=== PATIENT | female | born 1930 | race Caucasian/White ===

== ENCOUNTER 2016-11-29 17:05 | Inpatient (IN) | payer MEDICARE, OTHER ==
[~2016-11-29] VITALS: Ht 162.6 cm; Wt 66.6 kg
[~2016-11-29 17:05] MED LIST: ACCUPRIL10 MG PO; HYDROCODONE-APA1 TAB PO; IPRAT-ALBUT 0.5-3 ML UPD; PLAQUENIL200 MG PO; PROAIR HFA8.5 GM INH; SALAGEN5 MG PO; SYMBICORT 16010.2 GM INH; THEOPHYLLINE PO
--- NOTE | 2016-11-29 17:25 | NUR ---
TRANSFER FROM ADMISSIONS BY W/C. OREINTED TO ROOM. CALL LGHT IN REACH. WILL CONT. PLAN OF CARE.
[2016-11-29 18:16] VITALS: BP 198/77; BMI 25.6
[2016-11-29 18:38] LABS: BASOPHILS 0.5 % (0.0-2.0); EOSINOPHILS 6.8 % (0-7); HEMATOCRIT 40.4 % (36.0-48.0); HEMOGLOBIN 13.4 g/dL (12-16); IMMATURE GRANULOCYTES 0.2 % (0-5); LYMPHOCYTES 31.2 % (15-50); MCH 30.9 pg (26.0-34.0); MCHC 33.2 g/dL (31.0-37.0); MCV 93.1 fL (80.0-100.0); MEAN PLATELET VOLUME 10.7 fL (7.4-10.4); MONOCYTES 6.2 % (2-11); NEUTROPHILS 55.1 % (40-80); PLATELET COUNT 243 10x3/uL (130-400); RBC 4.34 10x6/uL (4.00-5.40); WBC 4.4 10x3/uL (4.8-10.8)
[2016-11-29 18:49] LABS: ANION GAP 15.6 mmol/L (8-16); CALCIUM 9.8 mg/dL (8.5-10.1); CARBON DIOXIDE 26.8 mmol/L (21.0-32.0); CREATININE - SERUM 1.1 mg/dL (0.6-1.3); POTASSIUM - SERUM 3.4 mmol/L (3.5-5.1)
[2016-11-29 20:00] VITALS: BP 155/73
--- NOTE | 2016-11-29 20:00 | NUR ---
22 GUAGE PIV INSERTED INTO R.FA X1 ATTEMPT. PROVIDED PT WITH ORDERED MEDS AND CONNECTED HER TO HER IVPB ANBX. PT SITTING UP IN BED RESTING WITH FAMILY AT BEDSIDE. DENIES ANY CURRENT PAIN OR FURTHER NEEDS. CL IN REACH, BED IN LOWEST, SIDE RAILS X2. WILL CPOC.
[2016-11-29] MEDS ORDERED: NOLVADEX10 M1 PO (21:46)
--- NOTE | 2016-11-29 23:39 | NUR ---
RESUMED CARE OF PT, BED IS LOW, SRX2, CALL LIGHT IN REACH, WILL CONTINUE TO MONITOR
[2016-11-30 02:00] VITALS: BP 146/70
[2016-11-30 04:30] VITALS: BP 142/70
[2016-11-30 05:33] LABS: BASOPHILS 0.4 % (0.0-2.0); EOSINOPHILS 0.4 % (0-7); HEMATOCRIT 36.9 % (36.0-48.0); HEMOGLOBIN 12.1 g/dL (12-16); MCH 30.5 pg (26.0-34.0); MCHC 32.8 g/dL (31.0-37.0); MCV 92.9 fL (80.0-100.0); MEAN PLATELET VOLUME 10.6 fL (7.4-10.4); MONOCYTES 1.2 % (2-11); PLATELET COUNT 218 10x3/uL (130-400); RBC 3.97 10x6/uL (4.00-5.40); RDW 12.9 % (11.5-14.5)
[2016-11-30 05:35] LABS: WBC 2.6 10x3/uL (4.8-10.8)
[2016-11-30 05:59] LABS: ANION GAP 15.4 mmol/L (8-16); CALCIUM 8.5 mg/dL (8.5-10.1); CREATININE - SERUM 1.1 mg/dL (0.6-1.3)
[2016-11-30 06:00] LABS: POTASSIUM - SERUM 4.4 mmol/L (3.5-5.1)
--- NOTE | 2016-11-30 07:49 | NUR ---
RECEIVED REPORT FROM NIGHT NURSE. PT RECEIVING RESP TREATMENT. NO DISTRESS. WILL CONTINUE TO MONITOR.
[2016-11-30 07:51] VITALS: BP 156/77
--- NOTE | 2016-11-30 11:00 | NUR ---
ASSUMED CARE FOR THIS PT FOR THE REMAINDER OF [employer] DAY[employer]. INTRODUCED MYSELF TO PT PRIMARY RN FOR TODAY. NO CURRENT NEEDS AT THIS TIME. WILL CHECK CHART ORDERS AND CPOC.
[2016-11-30 12:00] VITALS: BP 158/71
[2016-11-30 12:06] VITALS: Ht 162.6 cm; Wt 66.6 kg
[2016-11-30 16:00] VITALS: BP 129/55
--- NOTE | 2016-11-30 19:15 | NUR ---
RECEIVED REPORT, PT DENIES ANY NEEDS, TALKED TO HER ABOUT HAVE FINGERSTICKS, SHE AGREE TO HAVE THIS DONE, IV-RFA-SL, BED IS LOW, SRX2, WILL CONTINUE TO MONITOR
[2016-11-30 20:23] VITALS: BP 139/60
--- NOTE | 2016-11-30 21:56 | NUR ---
PT RESTING SOUNDLY WITHOUT C/O OR DISTRESS NOTED. CALL LIGHT WITHIN REACH. NO NEEDS VOICED. WILL CONT TO MONITOR.
[2016-12-01 00:07] VITALS: BP 125/60
[2016-12-01 04:26] VITALS: BP 151/68
[2016-12-01 06:52] LABS: BASOPHILS 0 % (0-2); EOSINOPHILS 0 % (0-7); HEMATOCRIT 38.8 % (36.0-48.0); HEMOGLOBIN 12.6 g/dL (12-16); IMMATURE GRANULOCYTES 0.3 % (0-5); LYMPHOCYTES 15.6 % (15-50); MCH 30.2 pg (26.0-34.0); MCHC 32.5 g/dL (31.0-37.0); MEAN PLATELET VOLUME 11.2 fL (7.4-10.4); MONOCYTES 4.8 % (2-11); NEUTROPHILS 79.3 % (40-80); PLATELET COUNT 240 10x3/uL (130-400); RBC 4.17 10x6/uL (4.00-5.40); RDW 12.9 % (11.5-14.5)
[2016-12-01 07:03] LABS: ANION GAP 14.3 mmol/L (8-16); CALCIUM 8.6 mg/dL (8.5-10.1); CARBON DIOXIDE 25.3 mmol/L (21.0-32.0)
[2016-12-01 07:05] LABS: POTASSIUM - SERUM 3.6 mmol/L (3.5-5.1)
--- NOTE | 2016-12-01 07:43 | NUR ---
ASSESSMENT COMPLETED.02 AT 2 L/M PER NC. NOT ON TELEMERTY. UP AB AIDE. DENIES ANY NEEDS. CALL LIGHT IN REACH WITH SR UP. WILL MONITOR
--- NOTE | 2016-12-01 08:00 | NUR ---
RESTING QUIETLY WORKING CROSS WORD PUZZLE RESP UNLABORED DENIES ANY NEEDS OR DISCOMFORT
[2016-12-01 08:12] VITALS: BP 155/68
[2016-12-01 12:46] VITALS: BP 152/75
--- NOTE | 2016-12-01 12:52 | NUR ---
UP ON SIDE OF BED. DENIES ANY NEEDS. CALL LIGHT IN REACH WITH SR UP. WILL MONITOR
[2016-12-01 15:46] VITALS: BP 155/81
--- NOTE | 2016-12-01 18:05 | NUR ---
UP IN BEDSIDE CHAIR. DENIES ANY NEEDS. CALL LIGHT IN REACH WITH SR UP. WILL MONITOR
--- NOTE | 2016-12-01 19:30 | NUR ---
RECEIVED REPORT, PT VISITING WITH FAMILY, DENIES ANY NEEDS, BED IS LOW, SRX2, CALL LIGHT IN REACH, IV-RFA-SL
[2016-12-01 20:07] VITALS: BP 162/81
--- NOTE | 2016-12-01 20:15 | NUR ---
PT IV INFILTRATED, LILIA RESTARTED TO L, WRIST
[2016-12-02] VITALS (7 sets, daily range): BP systolic 149–177; BP diastolic 69–89
[2016-12-02 06:15] LABS: BASOPHILS 0 % (0-2); EOSINOPHILS 0 % (0-7); HEMATOCRIT 36.8 % (36.0-48.0); HEMOGLOBIN 12.2 g/dL (12-16); IMMATURE GRANULOCYTES 0.5 % (0-5); LYMPHOCYTES 12.1 % (15-50); MCH 30.8 pg (26.0-34.0); MCHC 33.2 g/dL (31.0-37.0); MCV 92.9 fL (80.0-100.0); MEAN PLATELET VOLUME 11.2 fL (7.4-10.4); MONOCYTES 3.7 % (2-11); NEUTROPHILS 83.7 % (40-80); PLATELET COUNT 241 10x3/uL (130-400); RBC 3.96 10x6/uL (4.00-5.40); WBC 6.5 10x3/uL (4.8-10.8)
[2016-12-02 06:32] LABS: ANION GAP 14.4 mmol/L (8-16); CALCIUM 8.2 mg/dL (8.5-10.1); CARBON DIOXIDE 24.5 mmol/L (21.0-32.0); CREATININE - SERUM 0.9 mg/dL (0.6-1.3); POTASSIUM - SERUM 3.9 mmol/L (3.5-5.1)
--- NOTE | 2016-12-02 07:35 | NUR ---
ASSESSMENT COMPLETED. DENIES ANY NEEDS. LEFT WRIST SL. O2 AT 2 L/M PRN. WILL MONITOR
--- NOTE | 2016-12-02 09:43 | NUR ---
RESTING QUIETLY RESP UNLABORED DENIES ANY NEEDS OR DISCOMFORT NAD NOTED
--- NOTE | 2016-12-02 15:48 | NUR ---
UP IN CHAIR. DENIES ANY NEEDS. CALL LIGHT IN REACH. WILL MONITOR
--- NOTE | 2016-12-02 18:41 | NUR ---
LYING QUIETLY. DENIES ANY NEEDS. CALL LIGHT IN REACH WITH SR UP
--- NOTE | 2016-12-02 19:28 | NUR ---
RESUMED CARE OF PT, LYING IN BED RESPIRATIONS EVEN AND UNLABORED ON 2LPM VIA NC. FAMILY AT BEDSIDE. LEFT WRIST SALINE LOCKED. NO NEEDS VOICED AT THIS TIME. WILL CONTINUE TO MONITOR. CALL LIGHT IN REACH. SEE NURSE ASSESSMENT.
[2016-12-03 05:32] VITALS: BP 152/81
[2016-12-03 06:04] LABS: BASOPHILS 0.1 % (0-2); EOSINOPHILS 0.4 % (0-7); HEMATOCRIT 36.5 % (36.0-48.0); IMMATURE GRANULOCYTES 0.5 % (0-5); LYMPHOCYTES 17.7 % (15-50); MCH 30.5 pg (26.0-34.0); MCHC 32.9 g/dL (31.0-37.0); MCV 92.6 fL (80.0-100.0); MONOCYTES 12.1 % (2-11); NEUTROPHILS 69.2 % (40-80); PLATELET COUNT 256 10x3/uL (130-400); RBC 3.94 10x6/uL (4.00-5.40); RDW 12.8 % (11.5-14.5); WBC 7.5 10x3/uL (4.8-10.8)
[2016-12-03 06:19] LABS: ANION GAP 11.4 mmol/L (8-16); CALCIUM 8.3 mg/dL (8.5-10.1); CARBON DIOXIDE 28.8 mmol/L (21.0-32.0); CREATININE - SERUM 0.8 mg/dL (0.6-1.3)
[2016-12-03 06:25] LABS: POTASSIUM - SERUM 3.2 mmol/L (3.5-5.1)
--- NOTE | 2016-12-03 06:25 | NUR ---
NO CHANGES FROM PREVIOUS ASSESSMENT, CALL LIGHT IN REACH.
[2016-12-03 07:44] VITALS: BP 160/77
--- NOTE | 2016-12-03 08:01 | NUR ---
SLEEPING BUT AROUSABLE. SLEEPING. FAMILY AT BEDSIDE.
--- NOTE | 2016-12-03 08:03 | NUR ---
AWAKE WITHOUT ANY DISTRESS.
[2016-12-03 12:19] VITALS: BP 169/76
[2016-12-03] MEDS ORDERED: PREDNISONE20 MG PO (12:43)
--- NOTE | 2016-12-03 14:31 | NUR ---
DISCHARGE INSTRUCTIONS GIVEN. IV REMOVED WITH TIP INTACT. TO CAR VIA .
--- NOTE | 2016-12-03 15:54 | NUR ---
Patient Name: JARON MCCOY Admission Status: Urgent Accout number: [id number] Admission Date: 11-29-2016 : 1930 Admission Diagnosis:SHORTNESS OF BREATH Attending: TERRI Current LOS: 4 Anticipated DC Date: 12-03-2016 Planned Disposition: Home Primary Insurance: MEDICARE A & B LATE ENTRY: Discharge Planning Comments: * Is the patient Alert and Oriented? Yes 0 * How many steps to enter\exit or inside your home? NONE 0 * PCP DR. RAMACHANDRAN 0 * Pharmacy [facility] 0 * Preadmission Environment Home with Family 0 * ADLs Independent 0 * Equipment Cane Nebulizer Oxygen Walker 0 * Other Equipment [employer]ERGHOL[employer] PATIENT - MEDICAL EQUIPMENT PROVIDER 0 * List name and contact numbers for known caregivers / representatives who currently or will assist patient after discharge: TANMAY MCCOY, SPOUSE, 0 * Community resources currently utilized None 0 * Please name any agencies selected above. NONE 0 * Additional services required to return to the preadmission environment? No 0 * Can the patient safely return to the preadmission environment? Yes 0 * Has this patient been hospitalized within the prior 30 days at any hospital? No 0 CM MET WITH PT IN ROOM TO DISCUSS DISCHARGE PLANNING AND NEEDS. PT REPORTS LIVING AT HOME INDEPENDENTLY WITH HER SPOUSE. PT HAS HOME AND PORTABLE OXGYEN, NEBULIZER, WALKER AND CANE PROVIDED BY [employer]ITHUANIAN BERGHOLZ PATIENT. PT HAS NO OUTSIDE SERVICES ASSISTING IN THE HOME. CM DISCUSSED AVAILABILITY OF HOME HEALTH, REHAB SERVICES AND MEDICAL EQUIPMENT. PT DENIES DISCHARGE NEEDS, REPORTS HER SPOUSE IS HERE TO PICK HER UP FOR DISCHARGE HOME TODAY. IMPORTANT MESSAGE FROM MEDICARE PROVIDED AND EXPLAINED. Compounding Pharmacy Technician: Irvin Mccormack
== END 2016-12-03 14:40 | disposition home or self-care (01) | DRG 190 ==
LOC: D.M2 17:05
PROVIDERS: ADMIT Family Medicine
DX: J44.0 Chronic obstructive pulmonary disease with (acute) lower respiratory infection (principal); J18.1 Lobar pneumonia, unspecified organism; J44.1 Chronic obstructive pulmonary disease with (acute) exacerbation; I10 Essential (primary) hypertension; Z86.73 Personal history of transient ischemic attack (TIA), and cerebral infarction without residual deficits; M35.00 Sjogren syndrome, unspecified

== ENCOUNTER 2017-10-31 14:19 | Inpatient (IN) | payer MEDICARE, OTHER ==
[~2017-10-31] VITALS: Ht 162.6 cm; Wt 70.5 kg
--- NOTE | ~2017-10-31 | CN ---
PATIENT NAME:JARON MCCOY MEDICAL RECORD: [id number] : 30 LOCATION:[facility] ADMIT DATE: 10/31/17 ACCOUNT: [id number] CONSULTING PHYSICIAN: PEPITO ATKINSON MD REFERRING PHYSICIAN: LIN RAMACHANDRAN MD DATE OF CONSULTATION: 11/01/2017 CONSULT REQUESTING PHYSICIAN: Dr. Ramachandran. REASON FOR CONSULTATION: Pneumonia right upper lobe, flu. HISTORY OF PRESENT ILLNESS: Ms. Mccoy is an 87-year-old female who is sick for the last 5 days. She has flu-like symptom. She was given Tamiflu for 5 days, but she was not getting any better. She was seen in Dr. Ramachandran's office yesterday and admitted for aggressive management. Her influenza A and B were negative. REVIEW OF SYSTEMS: As in history of present illness. PAST MEDICAL HISTORY: 1. COPD. 2. Asthma. 3. Obstructive sleep apnea. 4. Chronic hypoxic respiratory failure. 5. Basal cell carcinoma of the right breast. 6. History of multiple TIAs. 7. Sjogren syndrome. PAST SURGICAL HISTORY: 1. Hysterectomy. 2. Tonsillectomy. 3. Hemorrhoidectomy. 4. Right hip replacement. 5. Left arm surgery. ALLERGIES: She is allergic to PENICILLIN and SULFA. MEDICATIONS: Her MOWGLItech is reviewed. PERSONAL SOCIAL HISTORY: The patient is an ex-smoker. She is nondrinker. FAMILY HISTORY: Noncontributory. PHYSICAL EXAMINATION: GENERAL: The patient is lying comfortably in bed. She is not in acute distress. VITAL SIGNS: The blood pressure is 122/43; pulse is 89; respiration is 18; temperature is 98.4, on admission her temperature was 102.7; and SpO2 97% on 2 liters nasal cannula. HEENT: Conjunctivae pink. Sclerae nonicteric. NECK: Neck is supple. No JVD. CHEST: The chest excursion is minimal on both sides. Wheeze on forceful expiration. HEART: Rhythm regular, normal sound, no murmur. ABDOMEN: Abdomen is soft. Bowel sounds present. No hepatosplenomegaly. CONSULT REPORT [id number] JARON MCCOY RECTAL: Deferred. EXTREMITIES: No cyanosis, no clubbing, and no pedal edema. SKIN: The skin is warm, normal turgor. CENTRAL NERVOUS SYSTEM: The patient is awake and alert. There are no obvious cranial nerve abnormalities. The gait was not tested. CHEST RADIOGRAPH: There is infiltrate in the right upper lobe. LABORATORY DATA: CBC: WBC 8.4, hemoglobin 10.5, hematocrit 31.6, and platelet count 244. Chemistry: Sodium 132, potassium 3.1, BUN is 9, and creatinine is 1. ABG: The pH is 7.46, pCO2 is 27.9, the pO2 is 77, and bicarbonate is 20.1. IMPRESSION: 1. Acute exacerbation of chronic obstructive pulmonary disease. 2. Waxhq-db-onddcmp hypoxic respiratory failure. 3. Pneumonia, right upper lobe consistent with community-acquired pneumonia. 4. Leukocytosis. 5. Obstructive sleep apnea. The patient is on CPAP at home. 6. Ex-smoker. RECOMMENDATION: 1. Discontinue Advair inhaler, start on Brovana and budesonide nebulizer. Continue doxycycline. I will add Rocephin for gram-negative coverage. 2. Albuterol/ipratropium nebulizer. 3. Start methylprednisolone IV. 4. Check alpha-1 level. 5. Follow up labs and chest radiograph. Dr. Ramachandran, thank you for involving me in the care of Ms. Mccoy. TRANSINT:[id number] Voice Confirmation ID: [id number] DOCUMENT ID: [id number] PEPITO ATKINSON MD at 1410 CC: LIN RAMACHANDRAN MD [id number] DICTATION DATE: 11/01/17 1208 BUSINESS SERVICES DIRECTOR: 11/01/17 1231 DIS IN 11/04/17 [place] [address]
[~2017-10-31 14:19] MED LIST changes: +PREDNISONE20 MG PO; +TAMOXIFEN CITRA20 MG PO
[2017-10-31] MEDS ORDERED: FUROSEMIDE20 MG PO (14:45)
[2017-10-31] MEDS ORDERED: BAYER CHEWABLE81 MG PO (14:48)
[2017-10-31] MEDS ORDERED: FLUTICASONE PRO16 GM NASAL (14:49)
[2017-10-31] MEDS ORDERED: SYMBICORT 16010.2 GM INH (14:51)
[2017-10-31] MEDS ORDERED: IPRAT-ALBUT 0.5-3 ML UPD (14:52)
[2017-10-31] MEDS ORDERED: PROAIR HFA8.5 GM INH (14:53)
[2017-10-31] MEDS ORDERED: CALCIUM 600+D T1 TA1 PO (14:54)
[2017-10-31] MEDS ORDERED: SYSTANE 0.3-0.4%5 ML EACH EYE (14:56)
[2017-10-31] MEDS ORDERED: PRESERVISION AR1 CAP PO (14:57)
[2017-10-31 15:01] VITALS: BP 142/49; BMI 24.8
[2017-10-31 17:14] LABS: BASOPHILS 0.1 % (0-2); EOSINOPHILS 0.2 % (0-7); HEMATOCRIT 31.7 % (36.0-48.0); HEMOGLOBIN 10.5 g/dL (12-16); IMMATURE GRANULOCYTES 0.4 % (0-5); MCH 29.7 pg (26.0-34.0); MCHC 33.1 g/dL (31.0-37.0); MCV 89.5 fL (80.0-100.0); MEAN PLATELET VOLUME 10.5 fL (7.4-10.4); MONOCYTES 10.2 % (2-11); NEUTROPHILS 82.1 % (40-80); PLATELET COUNT 232 10x3/uL (130-400); RBC 3.54 10x6/uL (4.00-5.40); RDW 13.7 % (11.5-14.5)
[2017-10-31 17:34] LABS: ALBUMIN 2.6 g/dL (3.4-5.0); ANION GAP 17.6 mmol/L (8-16); BILIRUBIN - TOTAL 0.53 mg/dL (0.2-1.3); CALCIUM 7.6 mg/dL (8.5-10.1); CARBON DIOXIDE 22.1 mmol/L (21.0-32.0); CREATININE - SERUM 1.2 mg/dL (0.6-1.3); POTASSIUM - SERUM 3.7 mmol/L (3.5-5.1); PROTEIN - SERUM 6.3 g/dL (6.4-8.2)
[2017-10-31 20:00] VITALS: BP 115/44
[2017-11-01] VITALS: BP 117/63
[2017-11-01 04:00] VITALS: BP 133/52
[2017-11-01 05:59] LABS: BASOPHILS 0.1 % (0-2); EOSINOPHILS 0.8 % (0-7); HEMATOCRIT 31.6 % (36.0-48.0); HEMOGLOBIN 10.5 g/dL (12-16); IMMATURE GRANULOCYTES 0.2 % (0-5); LYMPHOCYTES 9.1 % (15-50); MCH 29.3 pg (26.0-34.0); MCHC 33.2 g/dL (31.0-37.0); MCV 88.3 fL (80.0-100.0); MEAN PLATELET VOLUME 10.3 fL (7.4-10.4); MONOCYTES 11.3 % (2-11); NEUTROPHILS 78.5 % (40-80); PLATELET COUNT 244 10x3/uL (130-400); RBC 3.58 10x6/uL (4.00-5.40); RDW 13.7 % (11.5-14.5); WBC 8.4 10x3/uL (4.8-10.8)
[2017-11-01 06:28] LABS: ALBUMIN 2.3 g/dL (3.4-5.0); ANION GAP 11.5 mmol/L (8-16); BILIRUBIN - TOTAL 0.5 mg/dL (0.2-1.3); CALCIUM 7.9 mg/dL (8.5-10.1); CARBON DIOXIDE 23.6 mmol/L (21.0-32.0); PROTEIN - SERUM 6.7 g/dL (6.4-8.2)
[2017-11-01 06:30] LABS: POTASSIUM - SERUM 3.1 mmol/L (3.5-5.1)
[2017-11-01 09:19] VITALS: BP 122/43
[2017-11-01 10:29] VITALS: Ht 162.6 cm; Wt 70.5 kg
[2017-11-01 13:05] VITALS: BP 121/40
[2017-11-01 16:04] VITALS: BP 130/70
[2017-11-01 20:00] VITALS: BP 138/68
[2017-11-02 04:00] VITALS: BP 120/62
[2017-11-02 05:48] LABS: BASOPHILS 0 % (0-2); EOSINOPHILS 0 % (0-7); HEMATOCRIT 30.8 % (36.0-48.0); HEMOGLOBIN 10.3 g/dL (12-16); IMMATURE GRANULOCYTES 0.3 % (0-5); LYMPHOCYTES 3.3 % (15-50); MCH 29.2 pg (26.0-34.0); MCHC 33.4 g/dL (31.0-37.0); MCV 87.3 fL (80.0-100.0); MEAN PLATELET VOLUME 10.5 fL (7.4-10.4); NEUTROPHILS 94.4 % (40-80); PLATELET COUNT 281 10x3/uL (130-400); RBC 3.53 10x6/uL (4.00-5.40); RDW 13.7 % (11.5-14.5); WBC 7.6 10x3/uL (4.8-10.8)
[2017-11-02 06:02] LABS: ALBUMIN 2.3 g/dL (3.4-5.0); BILIRUBIN - TOTAL 0.3 mg/dL (0.2-1.3); CALCIUM 7.8 mg/dL (8.5-10.1); CARBON DIOXIDE 21.8 mmol/L (21.0-32.0); CREATININE - SERUM 0.9 mg/dL (0.6-1.3); PROTEIN - SERUM 6.8 g/dL (6.4-8.2)
[2017-11-02 06:06] LABS: POTASSIUM - SERUM 3.8 mmol/L (3.5-5.1)
[2017-11-02 10:15] VITALS: BP 138/61
[2017-11-02 12:35] VITALS: BP 130/57
[2017-11-02 16:19] VITALS: BP 148/75
[2017-11-02 20:00] VITALS: BP 141/58
[2017-11-03 04:00] VITALS: BP 141/68
[2017-11-03 04:02] LABS: BASOPHILS 0.1 % (0-2); EOSINOPHILS 0 % (0-7); HEMATOCRIT 31.1 % (36.0-48.0); HEMOGLOBIN 10.4 g/dL (12-16); IMMATURE GRANULOCYTES 0.4 % (0-5); MCH 29.3 pg (26.0-34.0); MCHC 33.4 g/dL (31.0-37.0); MCV 87.6 fL (80.0-100.0); MEAN PLATELET VOLUME 9.9 fL (7.4-10.4); NEUTROPHILS 93.5 % (40-80); PLATELET COUNT 310 10x3/uL (130-400); RBC 3.55 10x6/uL (4.00-5.40); RDW 13.8 % (11.5-14.5)
[2017-11-03 04:09] LABS: WBC 13.5 10x3/uL (4.8-10.8)
[2017-11-03 04:17] LABS: ALBUMIN 2.3 g/dL (3.4-5.0); BILIRUBIN - TOTAL 0.27 mg/dL (0.2-1.3); CALCIUM 8.2 mg/dL (8.5-10.1); CARBON DIOXIDE 24.2 mmol/L (21.0-32.0); CREATININE - SERUM 1.1 mg/dL (0.6-1.3); PROTEIN - SERUM 6.7 g/dL (6.4-8.2)
[2017-11-03 04:18] LABS: ANION GAP 12.2 mmol/L (8-16); POTASSIUM - SERUM 4.4 mmol/L (3.5-5.1)
[2017-11-03 09:09] VITALS: BP 140/57
[2017-11-03 14:53] VITALS: BP 121/66
[2017-11-03 16:39] VITALS: BP 162/78
[2017-11-03 21:11] VITALS: BP 132/53
[2017-11-04 01:35] VITALS: BP 131/59
[2017-11-04 05:28] LABS: BASOPHILS 0.1 % (0-2); EOSINOPHILS 0.1 % (0-7); HEMATOCRIT 32.3 % (36.0-48.0); HEMOGLOBIN 10.5 g/dL (12-16); IMMATURE GRANULOCYTES 1.1 % (0-5); MCH 29.1 pg (26.0-34.0); MCHC 32.5 g/dL (31.0-37.0); MCV 89.5 fL (80.0-100.0); MEAN PLATELET VOLUME 10.1 fL (7.4-10.4); MONOCYTES 5.3 % (2-11); NEUTROPHILS 88.4 % (40-80); PLATELET COUNT 329 10x3/uL (130-400); RBC 3.61 10x6/uL (4.00-5.40); RDW 14.5 % (11.5-14.5)
[2017-11-04 05:33] VITALS: BP 146/58
[2017-11-04 05:43] LABS: ALBUMIN 2.2 g/dL (3.4-5.0); ANION GAP 14.2 mmol/L (8-16); BILIRUBIN - TOTAL 0.25 mg/dL (0.2-1.3); CALCIUM 8.1 mg/dL (8.5-10.1); CARBON DIOXIDE 23.8 mmol/L (21.0-32.0); PROTEIN - SERUM 6.4 g/dL (6.4-8.2)
[2017-11-04 07:53] VITALS: BP 142/61
[2017-11-04 11:14] VITALS: BP 144/68
[2017-11-04] MEDS ORDERED: VIBRAMYCIN 100100 MG PO (13:08)
[2017-11-04 15:02] VITALS: BP 138/74
== END 2017-11-04 16:36 | disposition home or self-care (01) | DRG 193 ==
LOC: D.M2 14:19
PROVIDERS: Family Medicine
DX: J11.00 Influenza due to unidentified influenza virus with unspecified type of pneumonia (principal); J96.21 Acute and chronic respiratory failure with hypoxia; J44.1 Chronic obstructive pulmonary disease with (acute) exacerbation; J44.0 Chronic obstructive pulmonary disease with (acute) lower respiratory infection; Z87.891 Personal history of nicotine dependence; Z86.73 Personal history of transient ischemic attack (TIA), and cerebral infarction without residual deficits; M35.00 Sjogren syndrome, unspecified; G47.33 Obstructive sleep apnea (adult) (pediatric)

== ENCOUNTER → 2018-01-17 10:00 | Outpatient (CLI) | payer MEDICARE, OTHER ==
[2017-11-01 10:29] VITALS: BMI 24.7
[~2018-01-17 10:00] MED LIST changes: +BAYER CHEWABLE81 MG PO; +CALCIUM 600+D T1 TA1 PO; +FLUTICASONE PRO16 GM NASAL; +FUROSEMIDE20 MG PO; +PRESERVISION AR1 CAP PO; +SYSTANE 0.3-0.4%5 ML EACH EYE; +VIBRAMYCIN 100100 MG PO
== END | disposition home or self-care (01) ==
LOC: D.MAMMO 01-01 11:15
DX: D05.91 Unspecified type of carcinoma in situ of right breast (principal)

== ENCOUNTER → 2018-02-19 12:18 | Outpatient (CLI) | payer MEDICARE, OTHER ==
[2017-11-01 10:29] VITALS: BMI 24.7
== END | disposition home or self-care (01) ==
LOC: D.US 12:18
DX: R92.8 Other abnormal and inconclusive findings on diagnostic imaging of breast (principal)

== ENCOUNTER → 2018-08-20 20:05 | Outpatient (CLI) | payer MEDICARE, OTHER ==
[2018-07-12 09:30] VITALS: BMI 24.9
[~2018-08-20 20:05] MED LIST changes: +LEVAQUIN750 MG PO; +MEDROL DOSE PACK4 MG PO; +OMNICEF300 MG PO; +THEOCHRON300 MG PO
== END | disposition home or self-care (01) ==
LOC: D.MAMMO 13:30
DX: Z85.3 Personal history of malignant neoplasm of breast (principal)

== ENCOUNTER → 2018-11-10 12:56 | Outpatient (CLI) | payer MEDICARE ==
[2018-07-12 09:30] VITALS: BMI 24.9
== END | disposition home or self-care (01) ==
LOC: D.RT 12:56
PROVIDERS: ATTEND Internal Medicine Pulmonary Disease
DX: J44.9 Chronic obstructive pulmonary disease, unspecified (principal)

== ENCOUNTER → 2019-04-06 13:13 | Outpatient (CLI) | payer MEDICARE ==
[2018-07-12 09:30] VITALS: BMI 24.9
== END | disposition home or self-care (01) ==
LOC: D.CT 09:00
PROVIDERS: ATTEND Internal Medicine Pulmonary Disease
DX: R91.8 Other nonspecific abnormal finding of lung field (principal)

== ENCOUNTER → 2019-08-27 13:35 | Outpatient (CLI) | payer MEDICARE ==
[2018-07-12 09:30] VITALS: BMI 24.9
== END | disposition home or self-care (01) ==
LOC: D.CT 09:30
PROVIDERS: ATTEND Internal Medicine Pulmonary Disease
DX: R91.8 Other nonspecific abnormal finding of lung field (principal)

== ENCOUNTER 2020-01-19 19:00 | Outpatient (CLI) | payer MEDICARE ==
[2018-07-12 09:30] VITALS: BMI 24.9
== END 2020-01-19 23:59 | disposition home or self-care (01) ==
LOC: D.MAMMO 19:00
PROVIDERS: ATTEND Legal Medicine
DX: D05.91 Unspecified type of carcinoma in situ of right breast (principal)